=== PATIENT | male | born 1990 | race Two or more races ===

== ENCOUNTER 2022-04-04 00:16 | Emergency (ER) | payer OTHER ==
[~2022-04-04] VITALS: Ht 172.7 cm; Wt 49.9 kg
[2022-04-04] MEDS ORDERED: ZYNCOF 20-400120 ML PO (05:13)
== END 2022-04-04 05:37 ==
LOC: ER 00:16
DX: R09.89 Other specified symptoms and signs involving the circulatory and respiratory systems (principal)

== ENCOUNTER 2023-02-01 02:18 | Emergency (ER) | payer OTHER ==
[~2023-02-01] VITALS: Ht 172.7 cm; Wt 54.4 kg
[~2023-02-01 02:18] MED LIST: KETO10TA2 PO; ZYNCOF 20-400120 ML PO
[2023-02-01] MEDS ORDERED: DUI500 PO (02:33)
[2023-02-01] MEDS ORDERED: DICLOFENAC SODI75 MG PO (02:33)
== END 2023-02-01 02:47 | disposition home or self-care (01) ==
LOC: ER 02:18
DX: J03.90 Acute tonsillitis, unspecified (principal)

== ENCOUNTER 2023-03-01 12:16 | Emergency (ER) | payer OTHER ==
[~2023-03-01] VITALS: Ht 172.7 cm; Wt 54.4 kg
[~2023-03-01 12:16] MED LIST changes: +DICLOFENAC SODI75 MG PO; +DUI500 PO
[2023-03-01 18:49] LABS: HEMATOCRIT 44.1 % (39.0-48.0); HEMOGLOBIN 15.1 g/dL (13-16.00); MEAN CELL VOLUME 85.3 fL (80.0-100.00); MEAN CORPUSCULAR HEMOGLOBIN 29.2 pg (27.00-32.0); MEAN CORPUSCULAR HGB CONC 34.2 g/dl (32.0-36.0); PLATELET COUNT 318 K/uL (150-450); RED BLOOD COUNT 5.16 M/uL (4.00-6.00); RED CELL DISTRIBUTION WIDTH 13.7 % (11.5-14.5)
== END 2023-03-01 20:48 | disposition home or self-care (01) ==
LOC: ER 12:17
PROVIDERS: General Practice
DX: K20.80 Other esophagitis without bleeding (principal)

== ENCOUNTER 2023-08-25 15:39 | Emergency (ER) | payer OTHER ==
[~2023-08-25] VITALS: Ht 165.1 cm; Wt 54.4 kg
[2023-08-25] MEDS ORDERED: KETOROLAC TROMETHAMINE 10 MG TABLET PO STA (20:27)
[2023-08-25] MEDS ORDERED: KETOROLAC TROMETHAMINE 10 MG TABLET PO ONE (20:36)
== END 2023-08-25 20:57 | disposition home or self-care (01) ==
LOC: ER 15:40
DX: M94.0 Chondrocostal junction syndrome [Tietze] (principal); M54.9 Dorsalgia, unspecified